=== PATIENT | male | born 1970 | race American Indian/Alaskan Native ===

== ENCOUNTER 2017-04-14 11:04 | Emergency (ER) | payer SELFPAY ==
[2017-04-14 11:31] VITALS: BMI 25.8
[2017-04-14 11:33] VITALS: RESP 18; O2SAT 99
[2017-04-14] MEDS ORDERED: Naproxen 550 mg Tab PO STA (11:58)
[2017-04-14] MEDS ORDERED: Naproxen 550 mg Tab PO ONE (12:06)
[2017-04-14] MEDS ORDERED: Bacitracin 500 Units/gm Oint Foilpak UD ONE (12:36)
--- NOTE | 2017-04-14 12:38 | C.PDOC ---
History Of Present Illness 47 year old male presents to the ED for evaluation of right hip and posterior thigh pain radiating down the leg for the past 2 days. He denies falls/injuries , but admits that at work he lifts heavy objects and thinks the pain may have been caused by that. He denies fever, rash, sensory changes, dysuria/hematuria, abdominal pain. Time Seen by Provider: 04/14/17 11:45 Chief Complaint (Nursing): Lower Extremity Problem/Injury History Per: Patient History/Exam Limitations: no limitations Onset/Duration Of Symptoms: Days Current Symptoms Are (Timing): Still Present Severity: Mild Past Medical History Reviewed: Historical Data, Nursing Documentation, Vital Signs Vital Signs: Last Vital Signs Temp 98.5 F 04/14/17 13:14 Pulse 73 04/14/17 13:14 Resp 18 04/14/17 13:14 BP 110/72 04/14/17 13:14 Pulse Ox 99 04/14/17 16:02 - Medical History PMH: No Chronic Diseases Family History: States: No Known Family Hx - Social History Hx Alcohol Use: No Hx Substance Use: No - Immunization History Hx Tetanus Toxoid Vaccination: No Hx Influenza Vaccination: No Hx Pneumococcal Vaccination: No Review Of Systems Except As Marked, All Systems Reviewed And Found Negative. Constitutional: Negative for: Fever Cardiovascular: Negative for: Chest Pain Respiratory: Negative for: Cough, Hemoptysis Gastrointestinal: Negative for: Nausea, Vomiting, Abdominal Pain, Diarrhea Genitourinary: Negative for: Dysuria, Hematuria Musculoskeletal: Positive for: Leg Pain Skin: Negative for: Rash Neurological: Negative for: Weakness, Numbness Physical Exam - Physical Exam Appears: Well, Non-toxic, No Acute Distress Skin: Normal Color, Warm, Dry, No Rash Oral Mucosa: Moist Cardiovascular: Rhythm Regular Respiratory: Normal Breath Sounds, No Rales, No Rhonchi, No Wheezing Gastrointestinal/Abdominal: Normal Exam, Bowel Sounds, Soft, No Tenderness Back: Normal Inspection, No CVA Tenderness, No Vertebral Tenderness, No Paraspinal Tenderness Extremity: Normal ROM, No Pedal Edema, No Calf Tenderness, Capillary Refill (< 2 sec all digits ), Other (Right posterior hip and lower gluteal area tender to palpation with palpable muscle spasm, No rash, No erythema) Extremity: Bilateral: Atraumatic, Normal Color And Temperature, Normal ROM Pulses: Left Dorsalis Pedis: Normal, Right Dorsalis Pedis: Normal Neurological/Psych: Oriented x3, Normal Motor, Normal Sensation Gait: Steady ED Course And Treatment O2 Sat by Pulse Oximetry: 99 (RA) Pulse Ox Interpretation: Normal - Other Rad right hip/pelvis X-Ray: Interpreted by Me, Viewed By Me (no fractures/dislocations) Progress Note: Patient given PO Naprosyn and Flexeril. Xray of right hip/ pelvis ordered and reviewed. Reevaluation Time: 13:00 Reassessment Condition: Improved (Patient reassessed, pain has improved and he is ambulating normally in ED. Xray (-). Patient given Rxs for Naprosyn and Flexeril, and he was instructed to follow up with orthopedics within 1 week. He understands he should return to ED if symptoms worsen.) Disposition Counseled Patient/Family Regarding: Studies Performed, Diagnosis, Need For Followup, Rx Given - Disposition Referrals: Connie Basilio MD [Staff Provider] - Disposition: HOME/ ROUTINE Disposition Time: 13:00 Condition: STABLE Additional Instructions: FOLLOW UP WITH YOUR DOCTOR/CLINIC IN 1-2 DAYS, AND WITH ORTHOPEDICS WITHIN 1 WEEK IF SYMPTOMS PERSIST USE MEDICATIONS NEEDED RETURN TO ER IF SYMPTOMS WORSEN Prescriptions: Cyclobenzaprine [Cyclobenzaprine HCl] 10 mg PO BID PRN #15 tab PRN Reason: Muscle Spasm Naproxen 375 mg PO BID PRN #20 tablet PRN Reason: pain Instructions: Hip Pain (ED) Forms: [facility] (Bengali), Work Excuse Print Language: ITALIAN - POA Present On Arrival: None - Clinical Impression Clinical Impression: Sprain of right hip, Muscle spasm - Scribe Statement The provider has reviewed the documentation as recorded by the Rcahana Hunt Provider Attestation: All medical record entries made by the Billieibtrinh were at my direction and personally dictated by me. I have reviewed the chart and agree that the record accurately reflects my personal performance of the history, physical exam, medical decision making, and the department course for this patient. I have also personally directed, reviewed, and agree with the discharge instructions and disposition.
[2017-04-14 13:15] VITALS: BP 110/72; PULSE 73; TEMP 98.5
--- NOTE | 2017-04-14 14:42 | RAD ---
PROCEDURE: RIGHT HIP WITH PELVIS HISTORY: RIGHT HIP PAIN COMPARISON: NONE AVAILABLE. TECHNIQUE: An AP of the pelvis is noted with a frog-leg lateral view the right hip. FINDINGS: No fracture, dislocation or suspicious lytic or blastic changes seen at the right hip joint. The pelvic ring is intact with no destructive bony lesion either. Pubic symphysis is unremarkable as well as sacroiliac and hip joints bilaterally. Numerous tiny soft tissue calcifications seen at the buttocks and inferior pelvis soft tissues medially and bilaterally, suggestive of phleboliths though other etiologies are possible. IMPRESSION: No acute fracture or dislocation. No destructive bony lesion right hip joint or the pelvic ring. Follow-up MRI may be considered as clinically warranted.
== END 2017-04-14 12:50 | disposition home or self-care (01) ==
LOC: C.ER 11:04
DX: S73.101A Unspecified sprain of right hip, initial encounter (principal); X58.XXXA Exposure to other specified factors, initial encounter; M62.838 Other muscle spasm